=== PATIENT | female | born 1935 | race Caucasian/White ===

== ENCOUNTER 2016-10-08 21:17 | Emergency (ER) | payer MEDICARE ==
[2016-10-08 21:36] LABS: Hematocrit 35 % (35-47); Hemoglobin 11.3 g/dl (12.0-16.0); Mean Corpuscular HGB Conc 32 g/dl (31-36); Mean Corpuscular Hemoglobin 29 pg (27-31); Mean Corpuscular Volume 90 fL (80-97); Mean Platelet Volume 8 um3 (7.4-10.4); Red Blood Count 3.87 10^6/ul (4.0-5.4); Red Cell Distribution Width 14 % (10.5-15); White Blood Count 13.7 10^3/ul (3.5-10.8)
[2016-10-08 21:52] LABS: Anion Gap 6 mmol/L (2-11); BUN/Creatinine Ratio 16.7 (8-20); Blood Urea Nitrogen 12 mg/dL (6-24); CO2 Carbon Dioxide 27 mmol/L (22-32); Calcium 9.2 mg/dL (8.6-10.3); Chloride 101 mmol/L (101-111); EGFR African American 99.7 (>60); EGFR Non-African American 77.5 (>60); Glucose 155 mg/dL (70-100); Potassium 4.2 mmol/L (3.5-5.0); Sodium 134 mmol/L (133-145)
--- NOTE | 2016-10-08 22:06 | ED ---
roz Neville Timothy, scribed for Pelon Monique MD on 10/08/16 at 2119 . Headache - HPI Summary HPI Summary: Angelita Fox is an 81 yo female presenting to [facility] with a NLOASCO for 30 mins, and a lack of recollection of her symptoms per EMS. She was medicated with tylenol at 2039, with some relief. She has high blood pressure of "180/100", per EMS during transport BP was 160-150 systolic. She states she feels numb currently. She states she was experiencing diffuse body pains, but these have resolved. She denies any current pain or other Sx. She has a Hx of Alzheimers and dementia. - History Of Current Complaint Stated Complaint: HEADACHE Hx Obtained From: Patient Onset/Duration: Gradual Onset, Started hours ago Initially Headache Was: Moderate Currently Pain Is: Mild Timing: Intermittent, Lasting: - 30 mins Character: Typical Headache Allevating Factors: Nothing Associated Signs And Symptoms: Other (Noted In Comments) - myalgia - Allergies/Home Medications Allergies/Adverse Reactions: Allergies Allergy/AdvReac Type Severity Reaction Status Date / Time Donepezil [From Aricept] Allergy Unknown Verified 10/08/16 22:12 Reaction Details Hydrochlorothiazide Allergy Unknown Verified 10/08/16 22:12 Reaction Details Meperidine [From Demerol HCl] Allergy Unknown Verified 10/08/16 22:12 Reaction Details PMH/Surg Hx/FS Hx/Imm Hx Neurological History: Reports: Hx Dementia, Other Neuro Impairments/Disorders - alzheimers - Family History Known Family History: Positive: Unknown - Pt has alzheimers Review of Systems Constitutional: Negative Eyes: Negative ENT: Negative Cardiovascular: Negative Respiratory: Negative Gastrointestinal: Negative Positive: no symptoms reported Positive: Myalgia Skin: Negative Neurological: Other - loss of memory Positive: Headache Psychological: Normal All Other Systems Reviewed And Are Negative: Yes Physical Exam Triage Information Reviewed: Yes Vital Signs On Initial Exam: Initial Vitals Temp Pulse Resp BP Pulse Ox 98.4 F 101 16 162/94 94 10/08/16 21:18 10/08/16 21:18 10/08/16 21:18 10/08/16 21:18 10/08/16 21:18 Vital Signs Reviewed: Yes Appearance: Positive: Well-Appearing - pleasantly demented Skin: Positive: Warm Head/Face: Positive: Normal Head/Face Inspection Eyes: Positive: NIMISHA ENT: Positive: Hearing grossly normal Neck: Positive: Supple Respiratory/Lung Sounds: Positive: Clear to Auscultation Cardiovascular: Positive: Normal Abdomen Description: Positive: Nontender, Soft Bowel Sounds: Positive: Present Musculoskeletal: Positive: Strength/ROM Intact Neurological: Positive: Sensory/Motor Intact Psychiatric: Positive: Normal Diagnostics - Vital Signs Vital Signs Temp Pulse Resp BP Pulse Ox 10/08/16 21:25 97 93 10/08/16 21:18 98.4 F 101 16 162/94 94 - Laboratory Lab Results: Lab Results 10/08/16 10/08/16 Range/Units 21:30 21:30 WBC 13.7 H (3.5-10.8) 10^3/ul RBC 3.87 L (4.0-5.4) 10^6/ul Hgb 11.3 L (12.0-16.0) g/dl Hct 35 (35-47) % MCV 90 (80-97) fL MCH 29 (27-31) pg MCHC 32 (31-36) g/dl RDW 14 (10.5-15) % Plt Count 266 (150-450) 10^3/ul MPV 8 (7.4-10.4) um3 Neut % (Auto) 77.2 (38-83) % Lymph % (Auto) 11.6 L (25-47) % [place] % (Auto) 9.2 H (1-9) % Eos % (Auto) 1.5 (0-6) % Baso % (Auto) 0.5 (0-2) % Absolute Neuts (auto) 10.6 H (1.5-7.7) 10^3/ul Absolute Lymphs (auto) 1.6 (1.0-4.8) 10^3/ul Absolute Monos (auto) 1.3 H (0-0.8) 10^3/ul Absolute Eos (auto) 0.2 (0-0.6) 10^3/ul Absolute Basos (auto) 0.1 (0-0.2) 10^3/ul Absolute Nucleated RBC 0.01 10^3/ul Nucleated RBC % 0.1 Sodium 134 (133-145) mmol/L Potassium 4.2 (3.5-5.0) mmol/L Chloride 101 (101-111) mmol/L Carbon Dioxide 27 (22-32) mmol/L Anion Gap 6 (2-11) mmol/L BUN 12 (6-24) mg/dL Creatinine 0.72 (0.51-0.95) mg/dL Est GFR ( Amer) 99.7 (>60) Est GFR (Non-Af Amer) 77.5 (>60) BUN/Creatinine Ratio 16.7 (8-20) Glucose 155 H (70-100) mg/dL Calcium 9.2 (8.6-10.3) mg/dL Serum Alcohol Pending Result Diagrams: 10/08/16 21:30 10/08/16 21:30 Lab Statement: Any lab studies that have been ordered have been reviewed, and results considered in the medical decision making process. - EKG 2109 Cardiac Rate: NL - @ 98 BPM EKG Interpretation: NSR @ 98 BPM. Generalized low voltage. Headache Course/Dx - Course Assessment/Plan: Angelita Dyer is an 81 yo female presenting to [facility] with NOLASCO and myalgia, and a Hx of dementia and alzheimers. After review of her EKG and labs, she will be discharged home with head ache and hypertension. She is agreeable to this plan. - Diagnoses Provider Diagnoses: Head ache, Hypertension Discharge - Discharge Plan Condition: Stable Disposition: HOME Patient Education Materials: Hypertension (ED) Referrals: [facility] PHYSICIAN REFERRAL [Outside] - 2 Days Additional Instructions: Follow up with a primary care physician within 2 days regarding your visit to the emergency department. Return to the ED with any new or recurring symptoms The documentation as recorded by the roz patel Timothy accurately reflects the service I personally performed and the decisions made by , Pelon Monique MD.
[2016-10-08 22:21] VITALS: BP 140/69
[2016-10-08 22:46] LABS: Alcohol < 10 mg/dL (<10)
== END 2016-10-08 22:19 | disposition home or self-care (01) ==
LOC: ED 21:17
DX: I10 Essential (primary) hypertension (principal); R51 Headache; M79.1 Myalgia; G30.9 Alzheimer's disease, unspecified; F02.80 Dementia in other diseases classified elsewhere, unspecified severity, without behavioral disturbance, psychotic disturbance, mood disturbance, and anxiety
CPT/HCPCS: 36415; 80048; 80320; 85025; 93005; 99282; G0480

== ENCOUNTER 2016-12-10 15:03 | Emergency (ER) | payer MEDICARE ==
--- NOTE | 2016-12-10 15:53 | RAD ---
INDICATION: Shortness of breath. COMPARISON: There are no prior studies available for comparison. TECHNIQUE: A portable view of the chest was obtained. FINDINGS: Cardiac and mediastinal contours appear to be within normal limits. The lungs are hyperinflated and clear. There is blunting of the left costophrenic angle suggestive of a small pleural effusion or pleural thickening. IMPRESSION: SMALL LEFT PLEURAL EFFUSION OR PLEURAL THICKENING.
[2016-12-10] MEDS ORDERED: Famotidine IV* 10 MG/ML 2 ML (20 mg) IV SLOW PU ONE (15:56)
[2016-12-10 16:45] LABS: Hematocrit 39 % (35-47); Hemoglobin 12.6 g/dl (12.0-16.0); Mean Corpuscular HGB Conc 32 g/dl (31-36); Mean Corpuscular Hemoglobin 29 pg (27-31); Mean Corpuscular Volume 89 fL (80-97); Mean Platelet Volume 8 um3 (7.4-10.4); Red Cell Distribution Width 14 % (10.5-15); White Blood Count 9.6 10^3/ul (3.5-10.8)
[2016-12-10 17:00] LABS: Albumin 3.8 g/dL (3.2-5.2); BUN/Creatinine Ratio 11.8 (8-20); C Reactive Protein 4.77 mg/L (< 5.00); Calcium 9.1 mg/dL (8.6-10.3); EGFR African American 93.7 (>60); EGFR Non-African American 72.9 (>60); Globulin 3.4 g/dL (2-4); Total Bilirubin 0.4 mg/dL (0.2-1.0); Total Protein 7.2 g/dL (6.4-8.9)
[2016-12-10 18:09] VITALS: BP 142/87
[2016-12-10] MEDS ORDERED: hydrOXYzine HCL TAB* 25 MG ONE (18:25)
[2016-12-10] MEDS ORDERED: hydrOXYzine HCL TAB* 50 MG PO SCH (19:00)
--- NOTE | 2016-12-10 19:58 | ED ---
Shaw Neville Anna, scribed for Farhad Gilbert MD on 12/10/16 at 1515 . Complex/Multi-Sys Presentation - HPI Summary HPI Summary: Patient is an 81 y/o female BIBA to [facility] presenting with sudden onset of constant upper anterior chest wall edema that began this afternoon. She reports some pain in the area when prompted. She is additionally experiencing right elbow pain, some SOB, and some difficulty swallowing. The staff at her residential facility reported that she was unable to lift her arms because of the edema and the pain. She felt fine this morning and did not fall down or experience any trauma prior to the onset of the symptoms. Denies leg edema. LEVEL 5 CAVEAT - UNABLE TO OBTAIN FULL HISTORY DUE TO PATIENT HISTORY OF ALZHEIMER'S. - History Of Current Complaint Time Seen by Provider: 12/10/16 15:06 Hx Obtained From: Patient, Family/Workers' Compensation Hearings Officer - Accompanied by daughter, Other: - Residential facility staff - Allergies/Home Medications Allergies/Adverse Reactions: Allergies Allergy/AdvReac Type Severity Reaction Status Date / Time Donepezil [From Aricept] Allergy Unknown Verified 10/08/16 22:12 Reaction Details Hydrochlorothiazide Allergy Unknown Verified 10/08/16 22:12 Reaction Details Meperidine [From Demerol HCl] Allergy Unknown Verified 10/08/16 22:12 Reaction Details Home Medications: Home Medications Acetaminophen TAB* [Tylenol TAB*] 650 mg PO Q4H PRN 12/10/16 [History Confirmed 12/10/16] Alum & Mag Hydrox-Simethicone [Antacid M 200-200-20 mg/5Ml] 15 ml PO Q6HR PRN [History Confirmed 12/10/16] Amoxicillin CAP* [Amoxicillin 500 MG CAP*] 2,000 mg PO ONCE PRN 12/10/16 [ History Confirmed 12/10/16] Aspirin Low Dose CHEW TAB* [Aspirin Low Dose TAB*] 81 mg PO DAILY 12/10/16 [ History Confirmed 12/10/16] Atorvastatin* [Lipitor*] 10 mg PO BEDTIME 12/10/16 [History Confirmed 12/10/16] Cholecalciferol [Vitamin D] 1,000 unit PO DAILY 12/10/16 [History Confirmed ] GuaiFENesin DM* [Robitussin DM*] 5 ml PO Q6H PRN 12/10/16 [History Confirmed ] Metoprolol Succinate XL TAB* [Toprol XL TAB*] 25 mg PO BID 12/10/16 [History Confirmed 12/10/16] Mirtazapine TAB* [Remeron TAB*] 15 mg PO BEDTIME 12/10/16 [History Confirmed ] Pantoprazole TAB (NF) [Protonix TAB (NF)] 20 mg PO DAILY 12/10/16 [History Confirmed 12/10/16] Polyethylene Glycol 3350* [Miralax*] 17 gm PO MOWEFR 12/10/16 [History Confirmed 12/10/16] risperiDONE TAB* [RisperDAL*] 0.5 mg PO QAM 12/10/16 [History Confirmed 12/10/16 ] risperiDONE TAB* [RisperDAL*] 1 mg PO 1700 12/10/16 [History Confirmed 12/10/16] PMH/Surg Hx/FS Hx/Imm Hx Endocrine/Hematology History: Denies: Hx Diabetes Cardiovascular History: Denies: Hx Hypertension, Hx Myocardial Infarction Neurological History: Reports: Hx Dementia, Other Neuro Impairments/Disorders - alzheimers - Family History Known Family History: Positive: Unknown - Level 5 caveat - unable to obtain FHx because patient has alzheimers - Social History Occupation: Retired Lives: [facility] Alcohol Use: Daily Alcohol Amount: 1 glass of wine Substance Use Type: Reports: None Smoking Status (MU): Former Smoker Review of Systems - ROS Summary Review of Systems Summary: LEVEL 5 CAVEAT - UNABLE TO OBTAIN FULL HISTORY DUE TO PATIENT HISTORY OF ALZHEIMER'S. ENT: Other - difficulty swallowing Positive: Shortness Of Breath Positive: Myalgia, Edema All Other Systems Reviewed And Are Negative: No Physical Exam Triage Information Reviewed: Yes Vital Signs On Initial Exam: Temp Pulse Resp BP Pulse Ox 99.5 F 79 18 137/69 99 12/10/16 15:11 12/10/16 15:11 12/10/16 15:11 12/10/16 15:11 12/10/16 15:11 Vital Signs Reviewed: Yes Appearance: Positive: Well-Appearing, No Pain Distress Skin: Positive: Warm, Skin Color Reflects Adequate Perfusion, Dry Head/Face: Positive: Normal Head/Face Inspection Eyes: Positive: Normal ENT: Positive: Normal ENT inspection Neck: Positive: Supple, Nontender Respiratory/Lung Sounds: Positive: Clear to Auscultation, Breath Sounds Present Cardiovascular: Positive: RRR Abdomen Description: Positive: Nontender, Soft Bowel Sounds: Positive: Present Musculoskeletal: Positive: Other - Non-pitting edema of anterior chest wall. Worse on right than left. Neurological: Positive: Normal Psychiatric: Positive: Affect/Mood Appropriate Diagnostics - Vital Signs Vital Signs Temp Pulse Resp BP Pulse Ox 12/10/16 18:00 86 142/87 96 12/10/16 17:30 89 145/70 96 12/10/16 17:00 87 94 12/10/16 16:00 91 95 12/10/16 15:11 99.5 F 79 18 137/69 99 12/10/16 15:09 89 96 - Laboratory Lab Results: Lab Results 12/10/16 12/10/16 Range/Units 16:30 16:30 WBC 9.6 (3.5-10.8) 10^3/ul RBC 4.40 (4.0-5.4) 10^6/ul Hgb 12.6 (12.0-16.0) g/dl Hct 39 (35-47) % MCV 89 (80-97) fL MCH 29 (27-31) pg MCHC 32 (31-36) g/dl RDW 14 (10.5-15) % Plt Count 295 (150-450) 10^3/ul MPV 8 (7.4-10.4) um3 Neut % (Auto) 63.6 (38-83) % Lymph % (Auto) 24.1 L (25-47) % [place] % (Auto) 7.4 (1-9) % Eos % (Auto) 3.7 (0-6) % Baso % (Auto) 1.2 (0-2) % Absolute Neuts (auto) 6.1 (1.5-7.7) 10^3/ul Absolute Lymphs (auto) 2.3 (1.0-4.8) 10^3/ul Absolute Monos (auto) 0.7 (0-0.8) 10^3/ul Absolute Eos (auto) 0.4 (0-0.6) 10^3/ul Absolute Basos (auto) 0.1 (0-0.2) 10^3/ul Absolute Nucleated RBC 0 10^3/ul Nucleated RBC % 0 Sodium 134 (133-145) mmol/L Potassium 5.0 (3.5-5.0) mmol/L Chloride 102 (101-111) mmol/L Carbon Dioxide 30 (22-32) mmol/L Anion Gap 2 (2-11) mmol/L BUN 9 (6-24) mg/dL Creatinine 0.76 (0.51-0.95) mg/dL Est GFR ( Amer) 93.7 (>60) Est GFR (Non-Af Amer) 72.9 (>60) BUN/Creatinine Ratio 11.8 (8-20) Glucose 89 (70-100) mg/dL Calcium 9.1 (8.6-10.3) mg/dL Total Bilirubin 0.40 (0.2-1.0) mg/dL AST 30 (13-39) U/L ALT 33 (7-52) U/L Alkaline Phosphatase 110 H (34-104) U/L C-Reactive Protein 4.77 (< 5.00) mg/L Total Protein 7.2 (6.4-8.9) g/dL Albumin 3.8 (3.2-5.2) g/dL Globulin 3.4 (2-4) g/dL Albumin/Globulin Ratio 1.1 (1-3) Result Diagrams: 12/10/16 16:30 12/10/16 16:30 Lab Statement: Any lab studies that have been ordered have been reviewed, and results considered in the medical decision making process. - Radiology CXR Xray Interpretation: Positive (See Comments) Radiology Interpretation Completed By: Radiologist - IMPRESSION: SMALL LEFT PLEURAL EFFUSION OR PLEURAL THICKENING. Re-Evaluation - Re-Evaluation First Eval Re-Evaluation Time: 17:30 Change: Improved Comment: Patient reports that she is "doing pretty well." Discussed results and plan of care with patient and family. Patient and family are agreeable to plan. Complex Multi-Symp Course/Dx Course Of Treatment: Ms. Fox is pleasantly demented and difficult to get a good history but it seems as though she developed some swelling in her upper chest today. She has no C/O and denies SOB, difficulty swallowing, CP, itching etc. She has mild supraclavicular swelling right worse than the left without JVD or any facial swelling. This doesn't look infectious, allergic or like SVC syndrome so I am at a bit of a loss. She appears quite stable and it is possible that hydroxyzine here helped a little so I will try treating her and see how it develops. - Diagnoses Provider Diagnoses: Edema Discharge - Discharge Plan Condition: Stable Disposition: HOME Prescriptions: hydrOXYzine HCL TAB* [Atarax 25 MG TAB*] 25 mg PO QID PRN #20 tab PRN Reason: Allergy Symptoms Patient Education Materials: Diphenhydramine (By mouth), Hydroxyzine (By mouth) , Edema (ED) Referrals: [facility] [Outside] Additional Instructions: Follow up with primary care physician within 48 hours. Return to the emergency department for changing or worsening symptoms. The documentation as recorded by the Shaw patel Anna accurately reflects the service I personally performed and the decisions made by me, Farhad Gilbert MD.
== END 2016-12-10 18:29 | disposition home or self-care (01) ==
LOC: ED 15:03
DX: R60.9 Edema, unspecified (principal); M79.1 Myalgia; J90 Pleural effusion, not elsewhere classified; Z87.891 Personal history of nicotine dependence; R06.02 Shortness of breath
CPT/HCPCS: 36415; 71010; 80053; 85025; 86140; 96374; 99283; A9270-GY

== ENCOUNTER 2017-02-09 15:31 | Emergency (ER) | payer MEDICARE ==
[2017-02-09] MEDS ORDERED: Ondansetron ODT TAB* 4 MG PO ONE ×2 (16:12→18:30)
[2017-02-09] MEDS ORDERED: NS 0.9% 1000 ML* 1,000 ML IV ONE (17:35)
--- NOTE | 2017-02-09 18:01 | ADMNOTE ---
Subjective Date of Service: 02/09/17 Interval History: CONSULTATION: Allergies Allergy/AdvReac Type Severity Reaction Status Date / Time Donepezil [From Aricept] Allergy Unknown Verified 10/08/16 22:12 Reaction Details Hydrochlorothiazide Allergy Unknown Verified 10/08/16 22:12 Reaction Details Meperidine [From Demerol HCl] Allergy Unknown Verified 10/08/16 22:12 Reaction Details Home Medications Medication Instructions Recorded Confirmed Type Acetaminophen TAB* [Tylenol TAB*] 650 mg PO Q4H PRN 12/10/16 12/10/16 History Alum & Mag Hydrox-Simethicone 15 ml PO Q6HR PRN 12/10/16 12/10/16 History [Antacid M 200-200-20 mg/5Ml] Amoxicillin CAP* [Amoxicillin 500 2,000 mg PO ONCE PRN 12/10/16 12/10/16 History MG CAP*] Aspirin Low Dose CHEW TAB* 81 mg PO DAILY 12/10/16 12/10/16 History [Aspirin Low Dose TAB*] Atorvastatin* [Lipitor*] 10 mg PO BEDTIME 12/10/16 12/10/16 History Cholecalciferol [Vitamin D] 1,000 unit PO DAILY 12/10/16 12/10/16 History GuaiFENesin DM* [Robitussin DM*] 5 ml PO Q6H PRN 12/10/16 12/10/16 History Metoprolol Succinate XL TAB* 25 mg PO BID 12/10/16 12/10/16 History [Toprol XL TAB*] Mirtazapine TAB* [Remeron TAB*] 15 mg PO BEDTIME 12/10/16 12/10/16 History Pantoprazole TAB (NF) [Protonix 20 mg PO DAILY 12/10/16 12/10/16 History TAB (NF)] Polyethylene Glycol 3350* 17 gm PO MOWEFR 12/10/16 12/10/16 History [Miralax*] hydrOXYzine HCL TAB* [Atarax 25 MG 25 mg PO QID PRN #20 tab 12/10/16 Rx TAB*] risperiDONE TAB* [RisperDAL*] 0.5 mg PO QAM 12/10/16 12/10/16 History risperiDONE TAB* [RisperDAL*] 1 mg PO 1700 12/10/16 12/10/16 History HPI: The patient was in her usual state of health until 2 days ago when she had a temp of 103. Yesterday she seemed better. This AM she had emesis and did not get our of bed. She is not able to give a reliable history due to her dementia. Review of Systems - Measurements Intake and Output: Intake and Output Last 24 Hours 02/07/17 02/08/17 02/09/17 02/10/17 06:59 06:59 06:59 06:59 Weight 150 lb Objective Active Medications: Sodium Chloride (Ns 0.9% 1000 Ml*) 1,000 mls @ 1,000 mls/hr IV ED ONCE ONE Stop: 02/09/17 18:34 Vital Signs 02/09/17 02/09/17 15:32 15:34 Temperature 99.6 F 99.6 F Pulse Rate 88 88 Respiratory 15 15 Rate Blood Pressure 192/86 192/86 (mmHg) O2 Sat by Pulse 98 98 Oximetry Result Diagrams: 02/09/17 18:00 02/09/17 18:00 Assess/Plan/Problems-Billing Assessment: Status and Disposition: Patient treated in ED and discharged home. See consult note.
--- NOTE | 2017-02-09 18:06 | RAD ---
INDICATION: Cough, fever and weakness. COMPARISON: Comparison is made with a prior chest x-ray study from December 10, 2006. TECHNIQUE: A portable view of the chest was obtained. FINDINGS: Cardiac and mediastinal contours appear to be within normal limits. The lungs are underinflated. There is a small infiltrate at the left lung base suggestive of atelectasis. No pleural effusion is seen. IMPRESSION: SMALL LEFT BASILAR INFILTRATE SUGGESTIVE OF ATELECTASIS.
[2017-02-09 18:15] LABS: Hematocrit 38 % (35-47); Hemoglobin 12.6 g/dl (12.0-16.0); Mean Corpuscular HGB Conc 33 g/dl (31-36); Mean Corpuscular Hemoglobin 29 pg (27-31); Mean Corpuscular Volume 87 fL (80-97); Mean Platelet Volume 8 um3 (7.4-10.4); Red Blood Count 4.38 10^6/ul (4.0-5.4); Red Cell Distribution Width 15 % (10.5-15); White Blood Count 7.3 10^3/ul (3.5-10.8)
[2017-02-09 18:32] LABS: Albumin 4.2 g/dL (3.2-5.2); BUN/Creatinine Ratio 11.6 (8-20); C Reactive Protein 1.54 mg/L (< 5.00); EGFR African American 104.8 (>60); EGFR Non-African American 81.5 (>60); Globulin 3.5 g/dL (2-4); Magnesium 1.8 mg/dL (1.9-2.7); Potassium 3.4 mmol/L (3.5-5.0); Total Bilirubin 0.4 mg/dL (0.2-1.0); Total Protein 7.7 g/dL (6.4-8.9)
[2017-02-09 18:35] LABS: Troponin I 0.01 ng/mL (<0.04)
--- NOTE | 2017-02-09 18:38 | ED ---
Alfredo Neville Janilya, scribed for Ryan Batres MD on 02/09/17 at 1552 . Respiratory - HPI Summary HPI Summary: An 81 y/o female brought to [facility] by her family presenting w/ a gradual onset of constant respiratory Sx starting Friday, 02/07. Pt's daughter states that since Friday, pt has been having 103 F fever, coughing, wheezing. Yesterday, pt felt better and was ambulating. However, later in the day, pt felt worse again. She vomited and her fever returned. Pt denies CP, abd pain. LEVEL 5 CAVEAT - ALZHEIMERS - History of Current Complaint Chief Complaint: EDUpperRespComplaint Stated Complaint: COLD SYMPTOMS Time Seen by Provider: 02/09/17 15:48 Hx Obtained From: Family/Printing Plate Clerk - pt's daughter Hx From Patient Unobtainable Due To: Dementia Onset/Duration: Gradual Onset, Lasting Days, Still Present Timing: Constant Initial Severity: Moderate Current Severity: Moderate Pain Intensity: 0 Character: Wheezing, Cough (Productive) Aggravating Factor(s): Nothing Alleviating Factor(s): Nothing Associated Signs and Symptoms: Fever, Wheezing - Allergy/Home Medications Allergies/Adverse Reactions: Allergies Allergy/AdvReac Type Severity Reaction Status Date / Time Donepezil [From Aricept] Allergy Unknown Verified 10/08/16 22:12 Reaction Details Hydrochlorothiazide Allergy Unknown Verified 10/08/16 22:12 Reaction Details Meperidine [From Demerol HCl] Allergy Unknown Verified 10/08/16 22:12 Reaction Details PMH/Surg Hx/FS Hx/Imm Hx Previously Healthy: Yes Endocrine/Hematology History: Denies: Hx Diabetes Cardiovascular History: Denies: Hx Hypertension, Hx Myocardial Infarction Neurological History: Reports: Hx Dementia, Other Neuro Impairments/Disorders - alzheimers Infectious Disease History: No Infectious Disease History: Denies: Traveled Outside the [place] in Last 30 Days - Family History Known Family History: Positive: Unknown - Level 5 caveat - unable to obtain FHx because patient has alzheimers - Social History Occupation: Retired Lives: [facility] [place] Alcohol Use: Daily Alcohol Amount: 1 glass of wine Substance Use Type: Reports: None Smoking Status (MU): Former Smoker Review of Systems - ROS Summary Review of Systems Summary: LEVEL 5 CAVEAT - ALZHEIMERS Positive: Fever Negative: Chest Pain Positive: Cough, Other - wheezing Positive: Vomiting, Nausea. Negative: Abdominal Pain All Other Systems Reviewed And Are Negative: No Physical Exam Triage Information Reviewed: Yes Vital Signs On Initial Exam: Initial Vitals Temp Pulse Resp BP Pulse Ox 99.6 F 88 15 192/86 98 02/09/17 15:32 02/09/17 15:32 02/09/17 15:32 02/09/17 15:32 02/09/17 15:32 Vital Signs Reviewed: Yes Completion Of Physical Exam Limited Due To: Dementia Appearance: Positive: Well-Appearing - Arousable to voice, No Pain Distress Skin: Positive: Warm, Skin Color Reflects Adequate Perfusion, Dry Head/Face: Positive: Normal Head/Face Inspection, Other - Oral mucosa moist. Eyes: Positive: EOMI, NIMISHA ENT: Positive: Normal ENT inspection Neck: Positive: Supple, Nontender Respiratory/Lung Sounds: Positive: Clear to Auscultation, Breath Sounds Present , Rhonchi - some Cardiovascular: Positive: RRR Abdomen Description: Positive: Nontender, Soft Bowel Sounds: Positive: Present, Hypoactive Musculoskeletal: Positive: Normal, Strength/ROM Intact Neurological: Positive: Normal, Sensory/Motor Intact, Alert, Oriented to Person Place, Time Psychiatric: Positive: Affect/Mood Appropriate Diagnostics - Vital Signs Vital Signs Temp Pulse Resp BP Pulse Ox 02/09/17 15:34 99.6 F 88 15 192/86 98 02/09/17 15:32 99.6 F 88 15 192/86 98 - Laboratory Lab Results: Lab Results 02/09/17 02/09/17 02/09/17 Range/Units 18:00 18:00 18:00 WBC 7.3 (3.5-10.8) 10^3/ul RBC 4.38 (4.0-5.4) 10^6/ul Hgb 12.6 (12.0-16.0) g/dl Hct 38 (35-47) % MCV 87 (80-97) fL MCH 29 (27-31) pg MCHC 33 (31-36) g/dl RDW 15 (10.5-15) % Plt Count 246 (150-450) 10^3/ul MPV 8 (7.4-10.4) um3 Neut % (Auto) 78.6 (38-83) % Lymph % (Auto) 16.0 L (25-47) % [place] % (Auto) 5.2 (1-9) % Eos % (Auto) 0 (0-6) % Baso % (Auto) 0.2 (0-2) % Absolute Neuts (auto) 5.7 (1.5-7.7) 10^3/ul Absolute Lymphs (auto) 1.2 (1.0-4.8) 10^3/ul Absolute Monos (auto) 0.4 (0-0.8) 10^3/ul Absolute Eos (auto) 0 (0-0.6) 10^3/ul Absolute Basos (auto) 0 (0-0.2) 10^3/ul Absolute Nucleated RBC 0 10^3/ul Nucleated RBC % 0 INR (Anticoag Therapy) 0.93 (0.89-1.11) APTT 23.6 L (26.0-36.3) seconds Sodium 130 L (133-145) mmol/L Potassium 3.4 L (3.5-5.0) mmol/L Chloride 93 L (101-111) mmol/L Carbon Dioxide 27 (22-32) mmol/L Anion Gap 10 (2-11) mmol/L BUN 8 (6-24) mg/dL Creatinine 0.69 (0.51-0.95) mg/dL Est GFR ( Amer) 104.8 (>60) Est GFR (Non-Af Amer) 81.5 (>60) BUN/Creatinine Ratio 11.6 (8-20) Glucose 150 H (70-100) mg/dL Calcium 9.0 (8.6-10.3) mg/dL Magnesium 1.8 L (1.9-2.7) mg/dL Total Bilirubin 0.40 (0.2-1.0) mg/dL AST 23 (13-39) U/L ALT 28 (7-52) U/L Alkaline Phosphatase 114 H (34-104) U/L Total Creatine Kinase 49 (10-223) U/L CK-MB (CK-2) Pending Troponin I Pending C-Reactive Protein 1.54 (< 5.00) mg/L Total Protein 7.7 (6.4-8.9) g/dL Albumin 4.2 (3.2-5.2) g/dL Globulin 3.5 (2-4) g/dL Albumin/Globulin Ratio 1.2 (1-3) Lipase 12 (11.0-82.0) U/L TSH Pending Result Diagrams: 02/09/17 18:00 02/09/17 18:00 Lab Statement: Any lab studies that have been ordered have been reviewed, and results considered in the medical decision making process. - Radiology CXR Xray Interpretation: Positive (See Comments) - IMPRESSION: SMALL LEFT BASILAR INFILTRATE SUGGESTIVE OF ATELECTASIS. Radiology Interpretation Completed By: Radiologist Disposition - Course Course Of Treatment: An 81 y/o female brought to [facility] by her family presenting w/ a gradual onset of constant respiratory Sx starting Friday, 02/07. Pt's daughter states that since Friday, pt has been having 103 F fever, coughing, wheezing. Yesterday, pt felt better and was ambulating. However, later in the day, pt felt worse again. She vomited and her fever returned. Pt denies CP, abd pain. LEVEL 5 CAVEAT - ALZHEIMERS. CXR shows SMALL LEFT BASILAR INFILTRATE SUGGESTIVE OF ATELECTASIS. Assessment/Plan: PATIENT IS A RESIDENT OF ASSISTED LIVING AND MUST BE ABLE TO AMBULATE TO STAY THERE. INITIALLY, FAMILY DECLINED ANY IV/LABS. AFTER ZOFRAN 4MG ODT PO AND NS IVF, PATIENT ABLE TO AMBULATE TO BATHROOM AND FAMILY WISHES TO TAKE HER BACK TO TO ASSISTED [facility] RESIDENCE. DISCHARGE HOME STABLE WITH ZOFRAN ODT. - Diagnoses Provider Diagnoses: Vomiting, Weakness - Physician Notifications Discussed Care Of Patient With: Dr. Tam (PCP of pt) at 1624: discussed pt care and possible admission into hospital. Discharge - Discharge Plan Condition: Stable Disposition: HOME Prescriptions: Ondansetron ODT TAB* [Zofran 4 MG Odt TAB*] 4 mg PO Q6H PRN #10 tab.odt PRN Reason: Nausea Patient Education Materials: Acute Nausea and Vomiting (ED), Weakness (ED) Referrals: Paige Tam MD [Primary Care Provider] - Additional Instructions: FOLLOW UP WITH YOUR DOCTOR. RETURN TO THE EMERGENCY DEPARTMENT FOR ANY WORSENING OF YOUR CONDITION OR QUESTIONS OR CONCERNS. The documentation as recorded by the Alfredo patel Janilya accurately reflects the service I personally performed and the decisions made by me, Ryan Batres MD.
--- NOTE | 2017-02-09 18:39 | CONSULT ---
Subjective Date of Service: 02/09/17 Interval History: Allergies Allergy/AdvReac Type Severity Reaction Status Date / Time Donepezil [From Aricept] Allergy Unknown Verified 10/08/16 22:12 Reaction Details Hydrochlorothiazide Allergy Unknown Verified 10/08/16 22:12 Reaction Details Meperidine [From Demerol HCl] Allergy Unknown Verified 10/08/16 22:12 Reaction Details Home Medications Medication Instructions Recorded Confirmed Type Acetaminophen TAB* [Tylenol TAB*] 650 mg PO Q4H PRN 12/10/16 12/10/16 History Alum & Mag Hydrox-Simethicone 15 ml PO Q6HR PRN 12/10/16 12/10/16 History [Antacid M 200-200-20 mg/5Ml] Amoxicillin CAP* [Amoxicillin 500 2,000 mg PO ONCE PRN 12/10/16 12/10/16 History MG CAP*] Aspirin Low Dose CHEW TAB* 81 mg PO DAILY 12/10/16 12/10/16 History [Aspirin Low Dose TAB*] Atorvastatin* [Lipitor*] 10 mg PO BEDTIME 12/10/16 12/10/16 History Cholecalciferol [Vitamin D] 1,000 unit PO DAILY 12/10/16 12/10/16 History GuaiFENesin DM* [Robitussin DM*] 5 ml PO Q6H PRN 12/10/16 12/10/16 History Metoprolol Succinate XL TAB* 25 mg PO BID 12/10/16 12/10/16 History [Toprol XL TAB*] Mirtazapine TAB* [Remeron TAB*] 15 mg PO BEDTIME 12/10/16 12/10/16 History Pantoprazole TAB (NF) [Protonix 20 mg PO DAILY 12/10/16 12/10/16 History TAB (NF)] Polyethylene Glycol 3350* 17 gm PO MOWEFR 12/10/16 12/10/16 History [Miralax*] hydrOXYzine HCL TAB* [Atarax 25 MG 25 mg PO QID PRN #20 tab 12/10/16 Rx TAB*] risperiDONE TAB* [RisperDAL*] 0.5 mg PO QAM 12/10/16 12/10/16 History risperiDONE TAB* [RisperDAL*] 1 mg PO 1700 03/14/17 03/14/17 History Ondansetron ODT TAB* [Zofran 4 MG 4 mg PO Q6H PRN #10 tab.odt 02/09/17 Rx Odt TAB*] HPI: The patient was in her usual state of health until 2 days ago when she had a temp of 103. Yesterday she seemed better. This AM she had emesis and did not get our of bed. She is not able to give a reliable history due to her dementia. Family History: Findings - Her mother had demential Social History: Findings - Lives at [facility]. No alcohol or tobacco use. Daughter Brooklynn Bradford is her SDM. She has 2 other children also. Past Medical History: Findings - Dementia for many years, progressive. Review of Systems - Measurements Intake and Output: Intake and Output Last 24 Hours 02/07/17 02/08/17 02/09/17 02/10/17 06:59 06:59 06:59 06:59 Weight 150 lb - Review of Systems General Comments: No weight loss noticed by the daughter. Objective Vital Signs 02/09/17 02/09/17 02/09/17 15:32 15:34 15:52 Temperature 99.6 F 99.6 F Pulse Rate 88 88 Respiratory 15 15 Rate Blood Pressure 192/86 192/86 199/87 (mmHg) O2 Sat by Pulse 98 98 Oximetry 02/09/17 02/09/17 02/09/17 15:53 16:00 16:30 Temperature Pulse Rate 88 86 83 Respiratory Rate Blood Pressure 202/86 209/87 (mmHg) O2 Sat by Pulse 94 94 92 Oximetry Oxygen Devices in Use Now: None Appearance: Alert, partly up on ED stretcher. Neutral affect, cooperative. Looks comfortable. Ears/Nose/Mouth/Throat: Clear Oropharnyx, Mucous Membranes Moist Neck: NL Appearance and Movements; NL JVP, No Thyroid Enlargement, Masses Respiratory: Symmetrical Chest Expansion and Respiratory Effort, Clear to Auscultation, Clear to Percussion Cardiovascular: NL Sounds; No Murmurs; No JVD, RRR, No Edema Abdominal: NL Sounds; No Tenderness; No Distention, No Hepatosplenomegaly, - Extremities: No Edema, No Clubbing, Cyanosis, - Skin: No Rash or Ulcers, No Nodules or Sclerosis, - Neurological: NL Sensation - She can't say her age but could name her daughter. No tremor. Moves all limbs. Result Diagrams: 02/09/17 18:00 02/09/17 18:00 Microbiology and Other Data: Microbiology 02/09/17 18:11 Influenza Types A,B Antigen (ROLA) - Final Nasopharyngeal Specimen received for Influenza A/B Molecular testing Assessment/Plan - Billing Assessment: 1. Advanced dementia. Hx physically aggressive behavior leading to rx of risperidone. Hx delirium on a previous hospitalization. I discussed the prognsois and tx with the daughter. She is very clear she only wants comfort measures. She already told Dr. Tam that she doesn't want any antibiotics given under any circumstances. Hospice referral made. Patient will receive 1 L IV NSS and an rx for andansetron. Discussed with Dr. Batres.
[2017-02-09 19:22] LABS: TSH (Thyroid Stimulating Horm) 0.49 mcIU/mL (0.34-5.60)
[2017-02-09 19:48] VITALS: BP 180/82
== END 2017-02-09 20:36 | disposition home or self-care (01) ==
LOC: ED 15:31
DX: R06.2 Wheezing (principal); R50.9 Fever, unspecified; R11.2 Nausea with vomiting, unspecified
CPT/HCPCS: 36415; 71010; 80053; 82550; 82553; 83605; 83690; 83735; 83880; 84443; 84484; 85025; 85610; 85730; 86140; 87502; 99282; A9270-GY

== ENCOUNTER 2017-04-27 22:24 | Emergency (ER) | payer MEDICARE ==
--- NOTE | 2017-04-27 23:07 | ED ---
Marisel Neville Alok, scribed for Pelon Monique MD on 04/27/17 at 2251 . HPI Chest Pain - HPI Summary HPI Summary: 82F presents to the ED with CP on and off since 2 hours ago. Pt states that she "hasn't been feeling well" the past few days and notes recent stress since this week. PMHx includes dementia. Pt's son states that pt has had c/o similar CP before though with no proven cause. - History of Current Complaint Chief Complaint: EDChestPainROMI Time Seen by Provider: 04/27/17 22:42 Hx Obtained From: Patient, Family/Rn Ostomy Hx From Patient Unobtainable Due To: Dementia Onset/Duration: Started Hours Ago, Atraumatic, Still Present Timing: Intermittent Initial Severity: Moderate Current Severity: Moderate Pain Intensity: 0 Pain Scale Used: 0-10 Numeric Aggravating Factor(s): Nothing Alleviating Factor(s): Nothing Associated Signs and Symptoms: Positive: Chest Pain - Allergy/Home Medications Allergies/Adverse Reactions: Allergies Allergy/AdvReac Type Severity Reaction Status Date / Time Donepezil [From Aricept] Allergy Unknown Verified 10/08/16 22:12 Reaction Details Hydrochlorothiazide Allergy Unknown Verified 10/08/16 22:12 Reaction Details Meperidine [From Demerol HCl] Allergy Unknown Verified 10/08/16 22:12 Reaction Details PMH/Surg Hx/FS Hx/Imm Hx Endocrine/Hematology History: Denies: Hx Diabetes Cardiovascular History: Denies: Hx Hypertension, Hx Myocardial Infarction Neurological History: Reports: Hx Dementia, Other Neuro Impairments/Disorders - alzheimers Infectious Disease History: Denies: Traveled Outside the [place] in Last 30 Days - Family History Known Family History: Positive: Unknown - unable to confirm due to pt poor historian - Social History Occupation: Retired Lives: [facility] Alcohol Use: Daily Alcohol Amount: 1 glass of wine Substance Use Type: Reports: None Smoking Status (MU): Former Smoker Review of Systems Negative: Fever Positive: Chest Pain All Other Systems Reviewed And Are Negative: Yes Physical Exam Triage Information Reviewed: Yes Vital Signs On Initial Exam: Initial Vitals Temp Pulse Resp BP Pulse Ox 98.2 F 84 16 133/70 95 04/27/17 22:27 04/27/17 22:27 04/27/17 22:27 04/27/17 22:27 04/27/17 22:27 Vital Signs Reviewed: Yes Appearance: Positive: Well-Appearing, No Pain Distress Skin: Positive: Warm Head/Face: Positive: Normal Head/Face Inspection Eyes: Positive: NIMISHA ENT: Positive: Hearing grossly normal Neck: Positive: Supple Respiratory/Lung Sounds: Positive: Clear to Auscultation, Breath Sounds Present Cardiovascular: Positive: RRR Abdomen Description: Positive: Nontender, Soft Bowel Sounds: Positive: Present Musculoskeletal: Positive: Strength/ROM Intact Neurological: Positive: Sensory/Motor Intact Diagnostics - Vital Signs Vital Signs Temp Pulse Resp BP Pulse Ox 04/27/17 22:27 98.2 F 84 16 133/70 95 - Laboratory Result Diagrams: 04/28/17 00:00 04/28/17 00:00 Lab Statement: Any lab studies that have been ordered have been reviewed, and results considered in the medical decision making process. - EKG 2253 Cardiac Rate: NL - 86 bpm EKG Rhythm: Sinus Rhythm Re-Evaluation - Re-Evaluation First Eval Change: Improved - pt remains pain free, results d/w pt and family, sonwants to take pt home Chest Pain Course/Dx - Diagnoses Provider Diagnoses: Chest pain Discharge - Discharge Plan Condition: Improved Disposition: HOME Patient Education Materials: Chest Pain (ED) Referrals: Paige Tam MD [Primary Care Provider] - The documentation as recorded by the Marisel patel Alok accurately reflects the service I personally performed and the decisions made by , Pelon Monique MD.
[2017-04-28 01:11] LABS: Troponin I 0.01 ng/mL (<0.04)
[2017-04-28 01:15] VITALS: BP 140/74
[2017-04-28 01:19] LABS: Hematocrit 40 % (35-47); Hemoglobin 12.9 g/dl (12.0-16.0); Mean Corpuscular HGB Conc 32 g/dl (31-36); Mean Corpuscular Hemoglobin 29 pg (27-31); Mean Corpuscular Volume 91 fL (80-97); Mean Platelet Volume 9 um3 (7.4-10.4); Red Blood Count 4.42 10^6/ul (4.0-5.4); Red Cell Distribution Width 15 % (10.5-15); White Blood Count 12.5 10^3/ul (3.5-10.8)
[2017-04-28 01:33] LABS: BUN/Creatinine Ratio 15.1 (8-20); Calcium 9.8 mg/dL (8.6-10.3); EGFR Non-African American 57.6 (>60); Potassium 4.3 mmol/L (3.5-5.0)
== END 2017-04-28 01:16 | disposition home or self-care (01) ==
LOC: ED 22:24
DX: R07.9 Chest pain, unspecified (principal); Z87.891 Personal history of nicotine dependence
CPT/HCPCS: 36415; 80048; 84484; 85027; 93005; 99283

== ENCOUNTER 2018-06-07 08:15 | Emergency (ER) | payer MEDICARE ==
--- NOTE | 2018-06-07 09:44 | ED ---
Adult Trauma - HPI Summary HPI Summary: This patient is a 83 year [place] [facility] [facility]. Pt states that she is unaware what happened or why she is in the ED. Patient reports neck pain, ABD pain, and chest pain with palpation. Patient denies hip pain. The patient is a DNR but was sent to the ED for concerns of abrasion to the forehead. LEVEL 5 CAVEAT: Exam limited due to the patients severe Alzheimers - History of Current Complaint Chief Complaint: EDHeadInjury Stated Complaint: FALL Time Seen by Provider: 06/07/18 08:59 Hx Obtained From: Patient, EMS Hx From Patient Unobtainable Due To: Other - Alzheimers Onset/Duration: Started Hours Ago, Still Present Pain Intensity: 0 Pain Scale Used: 0-10 Numeric Location: Head - Allergy/Home Medications Allergies/Adverse Reactions: Allergies Allergy/AdvReac Type Severity Reaction Status Date / Time donepezil [From Aricept] Allergy Unknown Verified 06/07/18 08:50 Reaction Details hydrochlorothiazide Allergy Unknown Verified 06/07/18 08:50 Reaction Details meperidine Allergy Unknown Verified 06/07/18 08:50 Reaction Details Home Medications: Home Medications Calcium Polycarbophil [Fibercon] 1,250 mg PO DAILY 06/07/18 [History Confirmed 06/07/18] Calcium Polycarbophil [Fibercon] 625 mg PO BEDTIME 06/07/18 [History Confirmed 06/07/18] Cholecalciferol (Vitamin D3) [Vitamin D3] 10,000 unit PO Q30D 06/07/18 [History Confirmed 06/07/18] Metoprolol Succinate [Metoprolol Succinate ER] 25 mg PO BID 06/07/18 [History Confirmed 06/07/18] Pantoprazole TAB (NF) [Protonix TAB (NF)] 40 mg PO DAILY 06/07/18 [History Confirmed 06/07/18] Risperidone [Risperdal] 0.5 mg PO BEDTIME 06/07/18 [History Confirmed 06/07/18] risperiDONE [Risperdal] 1 mg PO DAILY 06/07/18 [History Confirmed 06/07/18] PMH/Surg Hx/FS Hx/Imm Hx Endocrine/Hematology History: Denies: Hx Diabetes Cardiovascular History: Denies: Hx Hypertension, Hx Myocardial Infarction Neurological History: Reports: Hx Dementia, Other Neuro Impairments/Disorders - alzheimers Infectious Disease History: No Infectious Disease History: Denies: Traveled Outside the [place] in Last 30 Days - Family History Known Family History: Positive: Unknown - unable to confirm due to pt poor historian - Social History Alcohol Use: Daily Alcohol Amount: 1 glass of wine Substance Use Type: Reports: None Smoking Status (MU): Former Smoker - Additional Comments History Additional Comments: LEVEL 5 CAVEAT: Exam limited due to the patients severe Alzheimers Review of Systems Positive: Other - mechanical fall Positive: Chest Pain - with palpation. Positive: Abdominal Pain - with palpation. Positive: Other - neck pain with palpation. Positive: Other - abrasion All Other Systems Reviewed And Are Negative: No - Comments Additional Review of Systems Comments: LEVEL 5 CAVEAT: Exam limited due to the patients severe Alzheimers Physical Exam - Summary Physical Exam Summary: Appearance: The patient is well-nourished in no acute distress and in no acute pain. Skin: Abrasion on the left periorbital area, forehead, and infraorbital area HEENT: The head is normocephalic and atraumatic. The pupils are equal and reactive. The conjunctivae are clear and without drainage. Nares are patent and without drainage. Mouth reveals moist mucous membranes and the throat is without erythema and exudate. The external ears are intact. The ear canals are patent and without drainage. The tympanic membranes are intact. Neck: The neck is supple with full range of motion and non-tender. There are no carotid bruits. There is no neck vein distension. Respiratory: Chest is non-tender. Lungs are clear to auscultation and breath sounds are symmetrical and equal. Cardiovascular: Heart is regular rate and rhythm. There is no murmur or rub auscultated. There is no peripheral edema and pulses are symmetrical and equal. Abdomen: The abdomen is soft and non-tender. There are normal bowel sounds heard in all four quadrants and there is no organomegaly palpated. Musculoskeletal: TTP in the C spine. Extremities are non-tender with full range of motion. There is good capillary refill. There is no peripheral edema or calf tenderness elicited. Neurological: Patient is alert and oriented to person, place and time. The patient has symmetrical motor strength in all four extremities. Cranial nerves are grossly intact. Deep tendon reflexes are symmetrical and equal in all four extremities. Psychiatric: The patient has an appropriate affect and does not exhibit any anxiety or depression. Triage Information Reviewed: Yes Vital Signs On Initial Exam: Initial Vitals Temp Pulse Resp BP Pulse Ox 97.6 F 82 16 165/86 95 06/07/18 08:38 06/07/18 08:38 06/07/18 08:38 06/07/18 08:38 06/07/18 08:38 Vital Signs Reviewed: Yes Completion Of Physical Exam Limited Due To: Level 5 - LEVEL 5 CAVEAT: Exam limited due to the patients severe Alzheimers - Maria G Coma Scale Best Eye Response: 4 - Spontaneous Best Motor Response: 6 - Obeys Commands Best Verbal Response: 4 - Confused Coma Scale Total: 14 Diagnostics - Vital Signs Vital Signs Temp Pulse Resp BP Pulse Ox 06/07/18 08:38 97.6 F 82 16 165/86 95 - Laboratory Lab Statement: Any lab studies that have been ordered have been reviewed, and results considered in the medical decision making process. - Radiology CXR Radiology Interpretation Completed By: Radiologist - , LEFT BASILAR ATELECTASIS WITH NO EVIDENCE OF PNEUMOTHORAX. ED physician has reviewed this radiology report. - CT CT Brain CT Interpretation Completed By: Radiologist - Scalp hematoma. Chronic ischemic White matter change with no evidence of intracranial mass or hemorrhage. ED physician has reviewed this radiology report. CT Cspine CT Interpretation Completed By: Radiologist - Multilevel degenerative disc disease without evidence of fracture. ED physician has reviewed this radiology report. Adult Trauma Course/Dx - Course Course Of Treatment: Ms. Fox was sent to the emergency department after a witnessed fall where she suffered some head injury. She has Alzheimer's disease and is unable to give much history. She did seem to be tender to palpation of her midline spine, she had abrasions to the left side of her head and she was tender in her left upper chest area. CT scans of her head and neck and plain film of her chest were obtained and were negative - Diagnoses Provider Diagnoses: Fall, Head injury, Abrasion Discharge - Sign-Out/Discharge Documenting (check all that apply): Patient Departure - Discharge Plan Condition: Stable Disposition: HOME Patient Education Materials: Fall Prevention for Older Adults (ED), Head Injury (ED), Abrasion (ED) Referrals: Paige Tam MD [Primary Care Provider] - 2 Days Additional Instructions: RETURN TO THE EMERGENCY DEPARTMENT FOR CHANGING OR WORSENING SYMPTOMS - Billing Disposition and Condition Condition: STABLE Disposition: Home - Attestation Statements Document Initiated by Scribe: Yes Documenting Scribe: Alin Mancilla Provider For Whom Genieibe is Documenting (Include Credential): Farhad Gilbert Scribe Attestation: Alin Neville, scribed for Farhad Gilbert on 06/07/18 at 1836. Scribe Documentation Reviewed: Yes Provider Attestation: The documentation as recorded by the Alin patel accurately reflects the service I personally performed and the decisions made by meFarhad
--- NOTE | 2018-06-07 09:58 | RAD ---
Indication: Head injury. CT of the brain was performed without IV contrast. Ventricular structures are midline. No midline shift is noted. There is no evidence of intracranial mass or hemorrhage. Periventricular lucency consistent with chronic ischemic White matter change is noted. Mastoid air cells and paranasal sinuses are otherwise unremarkable. Scalp hematoma is noted over the left supraorbital ridge. IMPRESSION: Scalp hematoma. Chronic ischemic White matter change with no evidence of intracranial mass or hemorrhage.
--- NOTE | 2018-06-07 10:11 | RAD ---
Indication: Head injury. Single frontal view of the chest performed at 0930 hours was reviewed. Comparison is made with previous exam dated February 09, 2017. No mediastinal shift is noted. Heart is of normal size and configuration. Left basilar atelectasis is noted. No pneumothorax is noted. IMPRESSION: LEFT BASILAR ATELECTASIS WITH NO EVIDENCE OF PNEUMOTHORAX.
--- NOTE | 2018-06-07 10:14 | RAD ---
Indication: Head injury. CT of the cervical spine was obtained in the axial plane. Sagittal and coronal reconstructed images were obtained. The skull base demonstrates mastoid air cells to be well aerated. The C1 ring is intact without fracture. Degenerative changes of the atlantoaxial joint is noted. At C2-C3 and C3-C4 osteopenia is noted. No definite fracture is noted. Bilateral facet hypertrophy is noted at C3-C4. Left foraminal stenosis is noted. At C4-C5 spondylitic ridge, left facet and uncovertebral hypertrophy narrows the left foramen. Minimal grade 1 spondylolisthesis of C4 on 5 is noted. At C5-C6 and C6-C7 degenerative disc disease and spondylitic ridge flattens the thecal sac. No obvious foraminal stenosis is noted. At C7-T1 disc space narrowing with osteophyte formation is noted. No fracture is identified. IMPRESSION: Multilevel degenerative disc disease without evidence of fracture.
[2018-06-07 10:43] VITALS: BP 166/67
== END 2018-06-07 10:40 | disposition home or self-care (01) ==
LOC: ED 08:15
DX: S09.90XA Unspecified injury of head, initial encounter (principal); S00.81XA Abrasion of other part of head, initial encounter; S00.03XA Contusion of scalp, initial encounter; W19.XXXA Unspecified fall, initial encounter; Y93.9 Activity, unspecified; Y92.129 Unspecified place in nursing home as the place of occurrence of the external cause; M50.323 Other cervical disc degeneration at C6-C7 level; J98.11 Atelectasis; Z88.5 Allergy status to narcotic agent; Z88.8 Allergy status to other drugs, medicaments and biological substances; Z87.891 Personal history of nicotine dependence
CPT/HCPCS: 70450; 71045; 72125; 99283